=== PATIENT | female | born 1975 | race Caucasian/White ===

== ENCOUNTER 2023-03-17 07:22 | Emergency (ER) | payer SELFPAY ==
[~2023-03-17] VITALS: Ht 162.6 cm; Wt 118.0 kg
[2023-03-17 07:42] VITALS: BP 120/71; PULSE 76; RESP 16; O2SAT 100
[2023-03-17 09:45] VITALS: TEMP 98.1
[2023-03-17] MEDS ORDERED: ACETAMINOPHEN 325MG TABLET PO ONE (09:45)
== END 2023-03-17 11:41 | disposition home or self-care (01) ==
LOC: ER 07:28
DX: F43.9 Reaction to severe stress, unspecified (principal); J45.909 Unspecified asthma, uncomplicated; E11.9 Type 2 diabetes mellitus without complications
CPT/HCPCS: 81025; 82962; 99282